=== PATIENT | male | born 1960 | race Caucasian/White ===

== ENCOUNTER 2016-09-24 08:34 | Inpatient (IN) | payer BC ==
[~2016-09-24] VITALS: Ht 175.3 cm; Wt 119.3 kg
[2016-09-24] VITALS (13 sets, daily range): BP systolic 101–167; BP diastolic 58–79
[~2016-09-24 08:34] MED LIST: ANTIVERT25 MG PO; ASPIRIN EC325 MG PO; ATORVASTATIN CA40 MG PO; CLOPIDOGREL75 MG PO; DAILY VITE1 EAC1 PO; DOCUSATE SODIU100 MG PO; GLIPIZIDE5 MG PO; GLUCOPHAGE500 MG PO; GLUCOTROL5 MG PO; HYDROCODON-ACE1 EAC7 PO; LIPITOR40 MG PO; LISINOPRIL-HCT1 EAC3 PO; LITE COAT ASPI325 M1 PO; LO-DOSE ASPIRIN81 M1 PO; LO-DOSE ASPIRIN81 M2 PO; METFORMIN HCL1000 MG PO; METFORMIN HCL500 MG PO; NITROSTAT0.4 MG SL; PANTOPRAZOLE SO40 MG PO; PROTONIX40 MG PO; THERAGRAN1 TABLET PO; THORAZINE10 MG PO; TRAMADOL HCL50 MG PO; TYLENOL REGULA325 MG PO; VICTOZA0.6 MG/0.1 SC
[2016-09-24 09:47] LABS: MCH 29.9 PG (29.0-34.0); MCHC 32.6 G/DL (30.0-36.0); MCV 91.6 FL (86-99); MEAN PLAT.VOLUME 11.1 uM^3 (9.0-12.4); PLATELET COUNT 142 K/uL (156-360); RBC DIS.WIDTH-CV 12.5 % (11.8-14.6); RBC DIS.WIDTH-SD 42.1 % (39-53); RED BLOOD COUNT 5.02 M/uL (4.00-5.50); WHITE BLOOD COUNT 6.6 K/uL (4.1-10.2)
[2016-09-24 10:31] LABS: ANION GAP 9 MEQ/L (2-14); CHLORIDE 103 MEQ/L (99-109); GFR ESTIMATE (CALCULATED) > 59 mL/min/; GLUCOSE 181 mg/dL (70-99); POTASSIUM 4.5 MEQ/L (3.7-5.4); SAMPLE HEMOLYSIS CHECK 0; SAMPLE ICTERIC CHECK 0; SAMPLE LIPEMIA CHECK 0; SODIUM 138 MEQ/L (136-147); UREA NITROGEN (BUN) 21 mg/dL (9-23)
[2016-09-24 17:37] LABS: POINT-OF-CARE METER ID UU13113675
[2016-09-24 21:57] LABS: POINT-OF-CARE METER ID UU13113803
[2016-09-25] VITALS: BP 119/60
[2016-09-25 00:13] LABS: METH RESISTANT S AUREUS PCR NEGATIVE (NEGATIVE)
[2016-09-25 00:14] LABS: PROBE CHECK PASS; SPECIMEN PROCESSING CONTROL PASS
[2016-09-25 01:00] VITALS: BP 127/73
[2016-09-25 02:00] VITALS: BP 106/61
[2016-09-25 04:00] VITALS: BP 90/60
[2016-09-25 06:00] VITALS: BP 126/71
[2016-09-25 07:57] LABS: POINT-OF-CARE METER ID UU14174217
[2016-09-25 08:00] VITALS: BP 106/69
[2016-09-25] MEDS ORDERED: HYDROCODON-ACE1 EAC7 PO (09:00)
== END 2016-09-25 10:07 | disposition home or self-care (01) | DRG 38 ==
LOC: 2SOUTH 08:34 → 4WEST 18:09
PROVIDERS: Surgery
DX: I65.22 Occlusion and stenosis of left carotid artery (principal); Z68.41 Body mass index [BMI] 40.0-44.9, adult; I10 Essential (primary) hypertension; Z86.73 Personal history of transient ischemic attack (TIA), and cerebral infarction without residual deficits; E11.9 Type 2 diabetes mellitus without complications; E66.9 Obesity, unspecified
CPT/HCPCS: 80048; 82948; 85027; 87641; 93005; C1768; J0690; J1644; J1650; J1815; J2250; J2405; J2720; J2795; J3010; J7120